=== PATIENT | male | born 1955 | race African-American/Black ===

== ENCOUNTER 2016-06-25 08:50 | Emergency (ER) ==
--- NOTE | 2016-06-25 09:27 | PROVIDER DOCUMENTATION ---
HPI-Musculoskeletal Pain/Inj - GENERAL Chief Complaint: Extremity Pain Stated Complaint: FOOT PAIN Time Seen by Provider: 06/25/16 09:14 Source: patient - HX OF PRESENT ILLNESS-MUSKULOSKELTAL Nature of Presenting Problem: 60 yr M presents to ED cc of "gout flare up" . Pt states he was diagnosed 5 yr ago with gout and has had no problem. Pt states he was placed in intermediate and got out 3 weeks ago. Pt states L foot/toe pain onset 2 weeks ago. Pt denies taking any meds for his gout. Pt denies being able to put weight on foot. Pt is in no distress. Quality of Pain: reports: aching Severity in ED: mild Onset/Duration: other (2 weeks) Timing: still present Modifying Factors: worse with: movement Any recent injury?: No (denies) Similar Symptoms Previously?: No Recently seen or treated by another doctor?: No - LOWER EXTREMITY PAIN/INJURY Lower Extremities Pain: foot: left, 1st toe: left Context / Method of Injury: reports: other (gout) Associated Symptoms: denies: lower back pain, numbness in legs/feet Review of Systems - Adult - REVIEW OF SYSTEMS - ADULT Constitutional: denies: chills, fever Ears, Nose, Mouth & Throat: denies: ear pain, throat pain Cardiovascular: denies: chest pain, palpitations Respiratory: denies: cough, shortness of breath Gastrointestinal: denies: abdominal pain, diarrhea, nausea, vomiting Musculoskeletal: reports: joint pain (L FOOT/TOE). denies: back pain Neurological: denies: dizziness/vertigo, headache/migraines Past History - Adult - PAST MEDICAL HISTORY-ADULT Review of Records: reports: Old Records Reviewed, Nursing Assessment Review Major Childhood Illnesses: reports: denies history Cardiovascular: reports: HTN, hyperlipidemia Respiratory: reports: denies history Gastrointestinal: reports: denies history Obstetrical/Gynecological: reports: denies history Genitourinary: reports: denies history Musculoskeletal: reports: arthritis (gout) Neurological: reports: CVA, stroke deficits (right sided), Seizures/Epilepsy Psychiatric: reports: other (substance abuse) Endocrine/Immune: reports: denies history Other Conditions: reports: denies history Additional History: History of medical noncompliance - PRIOR SURGERIES/PROCEDURES Surgical/Procedure History: reports: none, cardiac stent - IMMUNIZATION STATUS Childhood Immunizations: UTD Flu Vaccine: See Nurse Assessment - FAMILY HISTORY Family History: reviewed, not pertinent - SOCIAL HISTORY Smoking: denies Substance Use: denies Physical Exam-Injury Related - Physical Exam-Injury Related General Appearance: appears well, alert, no apparent distress Eyes: PERRL/EOMI, pink conjunctivae Head, Ears, Nose, Mouth & Throat: normocephalic/atraumatic, moist mucous membranes, normal ENT inspection Neck: non-tender, full range of motion Respiratory: chest non-tender, lungs clear, normal breath sounds Cardiovascular: normal peripheral pulses, regular rate, rhythm Abdominal Exam: normal bowel sounds, non tender, soft Lymphatic: no adenopathy Back Exam: normal inspection, no CVA tenderness Extremity: tenderness (L FOOT/TOE), other (WEAKNESS FROM CVA IN L ARM) Integumentary: normal color, warm/dry Neurologic: soft top installer II-XII nml as tested, grossly normal Psych/Mental Status: normal mood/affect, normal thought content, normal thought process, oriented x 3 - Glascow Coma Score Best Eye Response ([place]): (4) open spontaneously Best Verbal Response ([place]): (5) oriented Best Motor Response ([place]): (6) obeys commands Progress - PLAN OF CARE/RESULTS Progress/Plan/Lab Results: plan: TREAT PAIN AND GOUT orders pain medication and Colchicine , and some Prednisone to treat the pt. notified of labs being done/ Dr Mendez reviewed and pt is ready fro discharge. Pt is ready for discharge with the diagnosis of Gout. Orders Category Date Time Status BASIC METABOLIC PANEL [CHEM] Stat Lab 06/25/16 09:38 Uncollected CBC WITH ELECTRONIC DIFF [HEME] Stat Lab 06/25/16 09:38 Uncollected URIC ACID [CHEM] Stat Lab 06/25/16 09:38 Uncollected Colchicine [Colcrys] Med 06/25/16 09:33 Discontinued 1.2 mg PO NOW ONE Ketorolac [Toradol] Med 06/25/16 09:34 Discontinued 30 mg IM NOW ONE Oxycodone/APAP 5 mg/325 mg [Percocet-5] Med 06/25/16 09:36 Discontinued 1 each PO NOW ONE Prednisone Med 06/25/16 09:36 Discontinued 60 mg PO NOW ONE Vital Signs - 24 hr 06/25/16 08:55 Temperature 98.1 F Pulse Rate 70 Respiratory 18 Rate Blood Pressure 135/82 O2 Sat by Pulse 100 Oximetry Laboratory Tests 06/25/16 06/25/16 09:52 09:52 WBC 7.31 RBC 4.22 L Hgb 12.8 L Hct 39.8 L MCV 94.3 MCH 30.3 MCHC 32.2 L RDW Std Deviation 16.9 H Plt Count 247 MPV 9.8 Immature Gran % (Auto) 0.0 Neut % (Auto) 56.3 Lymph % (Auto) 28.9 [place] % (Auto) 8.8 Eos % (Auto) 5.3 Baso % (Auto) 0.7 Immature Gran # (Auto) 0.00 Neut # (Auto) 4.12 Lymph # (Auto) 2.11 [place] # (Auto) 0.64 H Eos # (Auto) 0.39 Baso # (Auto) 0.05 Sodium 142 Potassium 3.8 Chloride 106 Carbon Dioxide 23 L Anion Gap 13 BUN 11 Creatinine 1.1 Estimated GFR/1.73 m2 > 60 BUN/Creatinine Ratio 10 Glucose 121 H Calculated Osmolality 284 Calcium 9.1 Departure - Departure Time of Disposition Order: 09:36 DIAGNOSIS: Gout Qualifiers: Gout site: toe Gout etiology: unspecified cause Laterality: left Chronicity: unspecified Qualified Code(s): M10.9 - Gout, unspecified Disposition: HOME 01 Certified Medical Emergency: Emergent Condition: Stable Additional Instructions: ED Follow Up Instructions: You have been treated by a care provider in the Emergency Department. These instructions are being provided to you so you can have an understanding of how to care for yourself upon discharge. Upon discharge from the Emergency Department, you are responsible for making arrangements for follow-up care by a physician of your choice. Take all prescribed medications as directed. Return to the Emergency Department immediately for any new or worsening symptoms. You may call the Physician Referral phone number at [phone] to obtain a list of Physicians who are taking new patients. Prescriptions: Colchicine [Colcrys] 0.6 mg PO Q1-2H PRN PRN #10 tablet PRN Reason: gout attack Ibuprofen [Motrin] 800 mg PO TID PRN #30 tablet PRN Reason: Pain Prednisone 20 mg PO BID #10 tablet Referrals: None,PCP [Primary Care Provider] - Forms: Return to School/Parent Work Instructions: Gout, [id number] Attestation - Scribe Verification/Attestation Scribe:: Suri Rojas Acting as Scribe for:: Jayden Mendez Scribe documention review:: This chart was documented by a scribe and accurately reflects the service the provider performed and the decisions made by the provider.
[2016-06-25] MEDS ORDERED: COLCRYS PO ONE (09:33)
[2016-06-25] MEDS ORDERED: TORADOL IM ONE (09:34)
[2016-06-25] MEDS ORDERED: PERCOCET-5 PO ONE (09:36)
[2016-06-25] MEDS ORDERED: PREDNISONE PO ONE (09:36)
[2016-06-25 10:00] LABS: MANUAL DIFF NEEDED? NO
[2016-06-25 10:03] LABS: BASO% 0.7 % (0.0-0.8); EOS# 0.39 X1000 (0.0-0.7); EOS% 5.3 % (0.0-10.0); HEMATOCRIT 39.8 % (42.0-52.0); HEMOGLOBIN 12.8 g/dL (14.0-18.0); LYMPH# 2.11 X1000 (1.2-3.4); LYMPH% 28.9 % (20.5-51.1); MCH 30.3 PG (27-31); MCHC 32.2 g/dL (33-37); MCV 94.3 FL (81-99); MONO# 0.64 X1000 (0.11-0.59); MONO% 8.8 % (1.7-9.3); MPV 9.8 FL (7.4-10.4); NEUT% 56.3 % (42.2-75.2); PLT 247 X1000 (130-400); RBC 4.22 XMIL (4.7-6.1)
[2016-06-25 10:49] LABS: AGAP 13; BUN 11 mg/dL (8-22); CALCIUM 9.1 mg/dL (8.8-10.2); CHLORIDE 106 mmol/L (98-107); COSMO 284; POTASSIUM 3.8 mmol/L (3.5-5.1); SODIUM 142 mmol/L (136-145); TCO2 23 mmol/L (25-35)
[2016-06-25 12:04] LABS: URIC ACID 8.1 mg/dL (3.4-7.0)
[2016-06-25 12:30] VITALS: BP 157/88
== END 2016-06-25 12:30 | disposition home or self-care (01) ==
LOC: ED 08:50
DX: M10.9 Gout, unspecified (principal); M79.672 Pain in left foot; M79.675 Pain in left toe(s); I10 Essential (primary) hypertension; E78.5 Hyperlipidemia, unspecified; I69.851 Hemiplegia and hemiparesis following other cerebrovascular disease affecting right dominant side; R56.9 Unspecified convulsions; Z95.5 Presence of coronary angioplasty implant and graft; Z79.899 Other long term (current) drug therapy
CPT/HCPCS: 80048; 84550; 85025; 96372; J1885; J7512